=== PATIENT | female | born 1950 | race Two or more races ===

== ENCOUNTER 2016-08-07 22:39 | Emergency (ER) | payer SELFPAY ==
[2016-08-07 22:52] VITALS: TEMP 98.5; BMI 34.7
[2016-08-07] MEDS ORDERED: NS 1,000 ML IV ONE (22:57)
[2016-08-07 23:14] LABS: ABG Draw Site Left Brachial; ALLEN'S TEST PASS; BEb 2.6 (+/- 2); TCO2 28.5 MMOL/L (23-27)
[2016-08-07 23:47] LABS: BLOOD UREA NITROGEN 34 MG/DL (7-17); CALCIUM 9.3 MG/DL (8.4-10.2); CALCULATED OSMOLALITY 281 MOs/Kg (270-290); CHLORIDE 98 mEq/L (98-107); GLUCOSE 292 MG/DL (70-99); SODIUM LEVEL 136 mEq/L (137-146); TOTAL PROTEIN 8.1 G/DL (6.3-8.2)
[2016-08-07 23:53] LABS: AUTOMATED BASOPHIL 0.6 % (0-2); AUTOMATED EOSINOPHIL 5.1 % (0-5); AUTOMATED LYMPH 22.3 % (17-44); MPV 8.6 fL (7.4-10.4)
--- NOTE | 2016-08-07 23:59 | EDPRACDOC ---
- General Information Information Source: Patient, Family Allergies/Adverse Reactions: Allergies Allergy/AdvReac Type Severity Reaction Status Date / Time shot got in [place] Allergy See Uncoded 08/07/16 23:15 Comments - History of Present Illness Onset: TODAY Complains Of: Reports: None Relevant History: Reports: IDDM Medication Use: Reports: Normal Vomiting - TNTC: No Associated Signs and Symptoms: Reports: None Abdominal Pain Location: Reports: None Abdominal Pain Quality: Reports: None ED Past Medical History - History Reviewed Yes Nurses notes reviewed and agree except as marked If yes, which country: [place] Travel dates: 2015 - Patient Medical History Cardiac History: Reports: Hypertension Psychological History: Denies: Depression - Social Medical History Smoking Status: Never smoker EDM Review of Systems - Review of Systems ROS Negative Except as Marked: Yes All systems reviewed and were negative except as marked - Physical Exam Constitutional: Alert (Awake), No apparent distress Oriented to: Time, Person, Place Last recorded Vital Signs: Last Vital Signs Temp 98.5 F 08/07/16 22:41 Pulse 63 08/07/16 22:41 Resp 18 08/07/16 22:41 BP 201/90 H 08/07/16 22:41 Pulse Ox 99 08/07/16 22:41 Oxygen Pulse Oxygen Saturation 99 O2 Device Room Air Oxygen Flow Rate Fraction of Inspired Oxygen ( FIO2) - HEENT Head: Normal ( normocephalic) Eye Exam: Normal (PERRL, EOMI, Sclera white) Oropharynx: Normal (Pharynx:Moist without exudate,Gums-no swelling) ENT EAC: Normal TMJ: Normal Nose: No Symptoms Reported (septum midline) Neck: Normal (FROM, trachea at midline) - Respiratory/Cardiovascular Respiratory: Normal - CTA (BBS clear to auscultation without adventitious sounds ) Cardiovascular: Normal (RRR without murmur, gallop or rub) - GI Auscultation: Normal (NABS) Palpation: Normal (Soft,No rebound or guarding, non distended) Tenderness: Non tender Cuevas's Sign: Negative - Musculoskeletal Back: Normal (Non-Tender) Extremities: Normal (Normal tone, Pulses 2+ No cyanosis or edema, FROM) - Integumentary Skin: Normal, Warm, Dry Lymphatics: Normal (no adenopathy) - Neurologic Memory Impaired: Normal Motor Function: Normal (Normal tone, Pulses 2+ No cyanosis or edema, FROM) Cranial Nerve: Normal (CN II-X11 intact sensation, strength 5/5) Cerebellar: Normal Mood Description: Normal Perception: Normal - Results 08/07/16 23:00 08/07/16 23:00 WBC 7.8 xk/uL (3.8-10.8) 08/07/16 23:00 RBC 4.53 xM/uL (4.20-5.40) 08/07/16 23: Hgb 11.6 g/dL (12.0-16.0) L 08/07/16 23: Hct 35.8 % (36-47) L 08/07/16:00 MCV 79 fL (81-99) L 08/07/16:00 MCH 25.5 pg (27-32) L 08/07/16: MCHC 32.3 g/dl (33-36) L 08/07/16: RDW 13.0 % (11.5-14.5) 08/07/16: Plt Count 306 xk/uL (130-400) 08/07/16 23: MPV 8.6 fL (7.4-10.4) 08/07/16 23:00 Neut % (Auto) 67.0 % (45-76) 08/07/16:00 Lymph % (Auto) 22.3 % (17-44) 08/07/16:00 [place] % (Auto) 5.0 % (3-10) 08/07/16: Eos % (Auto) 5.1 % (0-5) H 08/07/16:00 Baso % (Auto) 0.6 % (0-2) 08/07/16:00 Absolute Neuts (auto) 5.23 xk/uL (1.7-8.2) 08/07/16:00 Absolute Lymphs (auto) 1.72 xk/uL (0.65-4.75) 08/07/16 23:00 Puncture Site Left brachial 08/07/16 23: pH 7.430 pH UNITS (7.35-7.45) 08/07/16 23:00 pCO2 41.0 mmHg (35-45) 08/07/16 23:00 pO2 81.0 mmHg (80-100) 08/07/16 23:00 HCO3 27.2 MMOL/L (22-26) H 08/07/16 23:00 Total CO2 28.5 MMOL/L (23-27) H 08/07/16 23:00 Base Excess 2.6 (+/- 2) H 08/07/16 23:00 FiO2 % 21 08/07/16 23:00 Specimen Drawn By Rakma 08/07/16 23:00 Sodium 136 mEq/L (137-146) L 08/07/16 23:00 Potassium 4.5 mEq/L (3.5-5.1) 08/07/16 23:00 Chloride 98 mEq/L (98-107) 08/07/16 23:00 Carbon Dioxide 28 mMOL/L (22-33) 08/07/16 23:00 Anion Gap 15 mEq/L (8-16) 08/07/16 23:00 BUN 34 MG/DL (7-17) H 08/07/16 23:00 Creatinine 1.10 MG/DL (0.52-1.04) H 08/07/16 23:00 Estimated GFR (MDRD) 50 mL/min (>=60) L 08/07/16 23:00 Glucose 292 MG/DL (70-99) H 08/07/16 23:00 POC Capillary Glucose 303 MG/DL (70-99) H 08/07/16 22:44 Calculated Osmolality 281 MOs/Kg (270-290) 08/07/16 23:00 Calcium 9.3 MG/DL (8.4-10.2) 08/07/16 23:00 Total Bilirubin 0.5 MG/DL (0.2-1.3) 08/07/16 23:00 AST 37 IU/L (14-36) H 08/07/16 23:00 ALT 38 IU/L (9-52) 08/07/16 23:00 Alkaline Phosphatase 89 IU/L (55-165) 08/07/16 23:00 Total Protein 8.1 G/DL (6.3-8.2) 08/07/16 23:00 Albumin 4.2 G/DL (3.5-5.0) 08/07/16 23:00 Lab Results 08/07/16 08/07/16 08/07/16 23:00 23:00 23:00 WBC 7.8 RBC 4.53 Hgb 11.6 L Hct 35.8 L MCV 79 L MCH 25.5 L MCHC 32.3 L RDW 13.0 Plt Count 306 MPV 8.6 Neut % (Auto) 67.0 Lymph % (Auto) 22.3 [place] % (Auto) 5.0 Eos % (Auto) 5.1 H Baso % (Auto) 0.6 Absolute Neuts (auto) 5.23 Absolute Lymphs (auto) 1.72 Puncture Site Left brachial pH 7.430 pCO2 41.0 pO2 81.0 HCO3 27.2 H Total CO2 28.5 H Base Excess 2.6 H FiO2 % 21 Specimen Drawn By Rakma Sodium 136 L Potassium 4.5 Chloride 98 Carbon Dioxide 28 Anion Gap 15 BUN 34 H Creatinine 1.10 H Estimated GFR (MDRD) 50 L Glucose 292 H POC Capillary Glucose Calculated Osmolality 281 Calcium 9.3 Total Bilirubin 0.5 AST 37 H ALT 38 Alkaline Phosphatase 89 Total Protein 8.1 Albumin 4.2 08/07/16 22:44 WBC RBC Hgb Hct MCV MCH MCHC RDW Plt Count MPV Neut % (Auto) Lymph % (Auto) [place] % (Auto) Eos % (Auto) Baso % (Auto) Absolute Neuts (auto) Absolute Lymphs (auto) Puncture Site pH pCO2 pO2 HCO3 Total CO2 Base Excess FiO2 % Specimen Drawn By Sodium Potassium Chloride Carbon Dioxide Anion Gap BUN Creatinine Estimated GFR (MDRD) Glucose POC Capillary Glucose 303 H Calculated Osmolality Calcium Total Bilirubin AST ALT Alkaline Phosphatase Total Protein Albumin Decision Time to Discharge: 01:30 - Departure Yes I personally saw and evaluated the patient. Disposition: Home Condition: Good Final Diagnosis: Attacks of weakness, HYPERGLYCEMIA Instructions: Weakness (General) Education/Counseling Given To: Patient, Family Member Education/Counseling Given Regarding: Diagnosis, Treatment, Prognosis Referrals: None,No Provider [Primary Care Provider] - One Week Uche Atwood MD [Staff Physician] - One Week
[2016-08-08] MEDS ORDERED: ONDANSETRON HCL 4 MG/2 ML VIAL IV ONE (00:34)
[2016-08-08 00:54] LABS: LEUKOCYTES/URINE NEG (NEGATIVE); NITRITE/URINE NEG (NEGATIVE); URINE OCCULT BLOOD 1+ (NEG/TRACE)
[2016-08-08 01:22] VITALS: BP 162/69; PULSE 60
== END 2016-08-08 01:45 | disposition home or self-care (01) ==
LOC: ED 22:39
DX: R53.1 Weakness (principal); E11.65 Type 2 diabetes mellitus with hyperglycemia; Z79.4 Long term (current) use of insulin
CPT/HCPCS: 36415; 36600; 80053; 81001; 82803; 82962; 85025; 87040; 87086; 96361; 96374; 99284; J2405